=== PATIENT | female | born 1950 | race Caucasian/White ===

== ENCOUNTER 2016-12-11 01:54 | Inpatient (IN) | payer MEDICARE ==
[2016-12-11] VITALS (28 sets, daily range): BP systolic 69–185; BP diastolic 59–95; PULSE 44–72; RESP 12–18; O2SAT 96–100
[~2016-12-11] VITALS: Ht 160 cm; Wt 74.8 kg
[~2016-12-11 01:54] MED LIST: CHOL500011 PO; CITA20TA11 PO; COPAXIN; DIPH50C PO; ESTR0.5T4 PO; GLAT20KI2 SUBQ; LAMICTAL; LEVO50TA6 PO; LEVOTHYROXINE; METO25TA99 PO; OMEP-113 PO
[2016-12-11 02:16] LABS: BASOPHILS % (AUTO) 0.6 % (0-3); EOSINOPHILS % (AUTO) 3.1 % (0-5); MONOCYTES % (AUTO) 6.5 % (4-12); Mean Corpuscular Hemoglobin 28.6 pg (27.0-35.0); Mean Corpuscular Volume 85.6 fL (81-100); NEUTROPHILS % (AUTO) 60.8 % (40-74); Platelet Count 305 bil/L (150-400)
--- NOTE | 2016-12-11 02:22 | ED.REPORT ---
HPI-Chest Pain 40 and Over Date of Service Dec 11, 2016 ED Provider: James Pereira MD Patient is a 66 year old female with a history of NSTEMI secondary to stress cardiomyopathy, hypertension, multiple sclerosis, and bipolar disorder presents to the ED with chest tightness that began at 2030 yesterday. The patient later developed left arm pain and nausea, so she decided to present to the ED tonight for evaluation. Patient denies abdominal pain, swelling in her legs, or shortness of breath. Patient states that her current symptoms are similar to when she previously had her NSTEMI. The patient states that her prior episode was thought to be either a myocardial infarction or "broken heart syndrome". Previous cardiac catheterization in 2012 showed no obstructive coronary disease and was suggestive of stress cardiomyopathy as the underlying etiology of her elevated troponin. Nursing Notes Stated Complaint: LEFT ARM PAIN/CHEST TIGHTNESS/NAUSEA Chief Complaint: Chest Pain Nursing Notes Reviewed: Yes Allergies: Coded Allergies: oxycodone (Verified Allergy, Severe, Nausea,Vomiting, 08/08/13) Scheduled Cholecalciferol (Vitamin D3) (Vitamin D3) 5,000 Unit Tablet 5,000 UNIT PO DAILY Citalopram (Citalopram) 20 Mg Tablet 20 MG PO DAILY Estradiol (Estrace) 0.5 Mg Tablet 0.5 MG PO DAILY Glatiramer Acetate (Copaxone) 20 Mg Syringe 20 MG SUBQ 3XW Levothyroxine (Levothyroxine) 50 Mcg Tablet 50 MCG PO DAILY Metoprolol Succinate ER (Metoprolol Succinate ER) 25 Mg Tab.er.24h 12.5 MG PO DAILY Omeprazole Magnesium (Omeprazole) 20 Mg Capsule.dr 20 MG PO DAILY Scheduled PRN Diphenhydramine Hcl (Benadryl) 25 Mg Capsule 25 MG PO HS PRN PRN For Insomnia Miscellaneous Medications ([Copaxin]) NEED SIG ([Levothyroxine]) NEED SIG ([Lamictal]) NEED SIG General Time Seen by MD: 02:01 Chief Complaint Chest pain Hx Obtained From: Patient Arrived By: Walk-in Sudden in Onset?: No Onset Occurred: 5 - 8 hours ago Symptom Duration: Since onset Location: : Chest left: Chest right Quality: Painful Severity: Current: Moderate Severity: Maximum: Severe Recent Healthcare: No recent doctor visit, No recent hospitalization Similar Sx Previous: Yes Past Medical History Past Medical History Notes: previous cardiac catheterization in 2012 showed no obstructive coronary disease and was suggestive of stress cardiomyopathy Past Medical History 1. Multiple sclerosis diagnosed about five years ago. 2. bipolar disorder. 3. Hypothyroidism. 4. GERD. 5. NSTEMI due to stress cardiomyopathy. Previous cardiac catheterization showed no obstructive coronary disease and was suggestive of stress cardiomyopathy Reports: Hypertension Reports: Depression Past Surgical History rotator cuff sinus surgery Reports: Hysterectomy Smoking History Never Smoker Review of Systems Respiratory: Denies: Shortness of breath Cardiovascular: Reports: Chest pain GI: Reports: Nausea, Denies: Abdominal pain, Vomiting Musculoskeletal: Reports: Extremity pain, Denies: Extremity swelling Complete sys rev & neg: except as marked. Physical Exam Initial Vital Signs Vital Signs (First) Date Time Temp Pulse Resp B/P Pulse Ox O2 Delivery O2 Flow Rate FiO2 12/11/16 02:05 36.6 63 17 156/80 99 Room Air Initial VS: Reviewed, Vital signs normal Head / Eyes: Atraumatic, Normocephalic, PERRL ENT: Mucous membranes moist, Conjunctiva normal, No scleral icterus Extremities: Vascular intact, Neuro intact, No swelling (no edema), No tenderness Skin: Warm, Dry, No cyanosis Neurologic: Alert, Oriented, Nonfocal Psychiatric: Mood/affect normal, Behavior normal, Normal thought content General/Constitutional: Awake, Alert, No acute distress Respiratory / Chest: Breath sounds NL, Breath sounds = bilat, No respiratory distress, No rales, No rhonchi, No wheezing Cardiovascular: Heart rate NL, Regular rhythm, Heart sounds NL Abdomen: Soft, Non-tender Neck: Supple, No JVD Interpretation & Diagnostics Lab Results Interpretation Result Diagram: 12/11/16 0205 12/11/16 020 Test 12/11/16 02:05 White Blood Count 11.5th/mm3 (3.8-10.1) Red Blood Count 4.79mil/mm3 (3.90-5.20) Hemoglobin 13.7g/dL (12.0-15.6) Hematocrit 41.0% (35.0-46.0) Mean Corpuscular Volume 85.6fL (81-100) Mean Corpuscular Hemoglobin 28.6pg (27.0-35.0) Mean Corpuscular Hemoglobin Concent 33.4% (32.0-37.0) Red Cell Distribution Width 12.8% (12.3-15.4) Platelet Count 305bil/L (150-400) Neutrophils (%) (Auto) 60.8% (40-74) Lymphocytes (%) (Auto) 28.8% (14-46) Monocytes (%) (Auto) 6.5% (4-12) Eosinophils (%) (Auto) 3.1% (0-5) Basophils (%) (Auto) 0.6% (0-3) Activated Partial Thromboplast Time 25.8sec (22.8-33.0) Sodium Level 132mEq/L (134-144) Potassium Level 3.9mEq/L (3.5-5.2) Chloride Level 93mEq/L (97-108) Carbon Dioxide Level 24mmol/L (18-29) Blood Urea Nitrogen 9mg/dL (8-27) Creatinine 0.72mg/dL (0.57-1.00) Estimat Glomerular Filtration Rate 116mL/min (>59) Glucose Level 112mg/dL (60-99) Calcium Level 8.7mg/dL (8.5-10.1) Magnesium Level 1.8mg/dL (1.6-2.6) Total Bilirubin 0.2mg/dL (0.0-1.2) Aspartate Amino Transf (AST/SGOT) 26U/L (0-50) Alanine Aminotransferase (ALT/SGPT) 22U/L (0-32) Alkaline Phosphatase 48U/L (25-165) Troponin T 0.164ug/L (0.0-0.011) Total Protein 7.1g/dL (6.4-8.4) Albumin 4.2g/dL (3.4-5.0) Hold Kim Top Tube Received (Received) Lab Results Interpretation: Mildly elevated white blood count, elevated troponin at 0.164. ECG Interpretation ECG Interpretation: Sinus rhythm, Rate 57 Time: 02:09 Interpreted by: ED physician Normal ECG Interpretation: No acute ischemic changes Time: 03:05 Interpreted by: ED physician Normal ECG Interpretation: No acute ischemic changes Repeat ECG: Repeat ECG unchanged X-Ray Chest Interpretation Chest Xray Interpretation: Impression: No acute cardiopulmonary process. View: Portable Interpretation / Wet Read by: Wet read ED physician Re-Eval/Medical Decision Med Decision/Clinical Course 66-year-old female with history and apparent and nonSTEMI in 2012 but a normal left heart catheterization so it was felt that she had a stress cardiomyopathy. Today she presents with left arm and chest pain. Her troponin is elevated. EKG is normal. She will be admitted for further OBSERVATION and treatment. Source of Hx: Old records Time of Eval: 04:10 Patient Status: Condition improved Re-Evaluation/Progress Note: Patient was informed of the results of her chest x-ray, EKG, and labs. Due to her elevated troponin, she will need to be admitted to the hospital for further. Patient understands and agrees with this plan. All questions were addressed. Consultation : Referral / Consult Name: Sorin Gracia MD Consulted With: Hospitalist Call Returned at: 03:39 Separator Operator: Will see patient, Agrees with eval, Agrees with plan, Accepts admit Note: Spoke with Dr. Gracia, hospitalist, who agrees to accept admit. Counseled Regarding: Diagnosis, Lab results, Need for admission Discharge & Departure Primary Impression: Acute coronary syndrome Additional Impressions: Elevated troponin Chest pain Chest pain type: unspecified Qualified Code: R07.9 - Chest pain, unspecified Disposition: ADMITTED TO HOSPITAL Discharge Condition All VS Reviewed: Yes Condition: Stable Referrals: Myesha Mathew MD (PCP) Scribe Attestation Portions of this note were transcribed by Ana Koch. I, Dr. Pereira personally performed the history, physical exam and medical decision-making; I reviewed and confirmed the accuracy of the information in the transcribed note. Signed by: Daly Kowalski, 12/11/2016 1753 copies to: Myesha Mathew MD, Howard L MD Dec 11, 2016 02:22 Ana Koch Dec 11, 2016 02:51
[2016-12-11 02:55] LABS: Magnesium 1.8 mg/dL (1.6-2.6)
[2016-12-11 02:57] LABS: TROPONIN T 0.164 ug/L (0.0-0.011)
[2016-12-11] MEDS ORDERED: Nitroglycerin 2% 1 Gm Ointment TOPICAL ONE (03:25)
[2016-12-11] MEDS ORDERED: Heparin 25K Unit/500mL 0.45 NS 25,000 UNIT in IV Premix 1 EACH IV ONE (03:25)
[2016-12-11] MEDS ORDERED: MeTOProlol 1 mg/mL 5 mL Inj IVPUSH PRN (03:25)
[2016-12-11] MEDS ORDERED: Heparin 5,000 Unit/mL Inj IVPUSH ONE (03:25)
--- NOTE | 2016-12-11 05:37 | PCM.HPMED ---
Subjective Date of Service Dec 11, 2016 Primary Provider: Admitting Physician: Sorin Gracia MD Primary Care Physician: Rahul Attending Physician: Sorin Gracia MD Admit Status: From the Emergency Department Chief Complaint: Female with left-sided chest pain History of Present Illness: Patient is a pleasant 66 Y?O F with a history of NSTEMI secondary to stress cardiomyopathy, HTN, multiple sclerosis, and myalgia who presented to the ED with complaint of acute onset squeezing chest tightness/pressure that began at 2030 12/10/2016. The patient later developed achy left shoulder, arm pain that extended to the fingertips and brief nausea, mild diaphoresis and shortness of breath. Patient had blood pressure taken at home and her blood systolic blood pressure was 185 but later came down to 150. Patient states that the pain lasted for about an hour and eventually went away after taking 2 baby aspirin. However then patient states that she laid down to "sleep but could not sleep secondary to chest pain and this is what brought her to ED tonight. Patient denied abdominal pain, swelling in her legs, fever, chills, cough. Patient stated that her current symptoms are similar to when she previously had her NSTEMI. The patient stated that her prior episode was thought to be either a myocardial infarction or "broken heart syndrome". Previous cardiac catheterization in 2012 showed no obstructive coronary disease and was suggestive of stress cardiomyopathy as the underlying etiology of her elevated troponin. In the ED vital signs: Temperature 36.3, pulse 63, blood pressure 156/80, respirations 1799% on room air. Hemogram: Hemoglobin 13.7, hematocrit 41.0, WBCs elevated at 11.5, platelets 305. Chemistry panel sodium 132, potassium 3.9, chloride 93, CO2 24, BUN 9, creatinine 0.72, glucose 112, troponin 0.164 EKG: Sinus rhythm, Rate 57. No acute ischemic changes Repeat EKG:No acute ischemic changes CXR: acute cardiopulmonary process. Patient was admitted to hospital for an STEMI and further workup. Review of Systems: A comprehensive review of systems was conducted and was negative except as mentioned in the history of present illness. Allergies Coded Allergies: No Known Allergies (Unverified , 12/11/16) verified with pt. Pt has been able to take oxycodone in recent without reaction. Home Medications Scheduled Cholecalciferol (Vitamin D3) (Vitamin D3) 5,000 Unit Tablet 5,000 UNIT PO DAILY Estradiol (Estrace) 0.5 Mg Tablet 0.5 MG PO DAILY Glatiramer Acetate (Copaxone) 20 Mg Syringe 20 MG SUBQ 3XW Levothyroxine (Levothyroxine) 50 Mcg Tablet 50 MCG PO DAILY Metoprolol Succinate ER (Metoprolol Succinate ER) 25 Mg Tab.er.24h 12.5 MG PO DAILY Omeprazole Magnesium (Omeprazole) 20 Mg Capsule.dr 20 MG PO DAILY PMH Past Medical History Notes: previous cardiac catheterization in 2012 showed no obstructive coronary disease and was suggestive of stress cardiomyopathy 1. Multiple sclerosis diagnosed about five years ago. 2. Fibromyalgia 3. Hypothyroidism. 4. GERD. 5. NSTEMI due to stress cardiomyopathy. Previous cardiac catheterization showed no obstructive coronary disease and was suggestive of stress cardiomyopathy Reports: Hypertension Reports: Depression Surgical History rotator cuff bilateral repair 1995 in 2001 sinus surgery Reports: Hysterectomy in 1993 Social History Hx Alcohol Use: Yes (COUPLE DRINKS TWICE A WEEK) Hx Substance Use: No Hx Tobacco Use: No Smoking Status: Never Smoker Living Arrangement: with Family Exam Vital Signs Vital Sign - Last Date Time Temp Pulse Resp B/P Pulse Ox O2 Delivery O2 Flow Rate FiO2 12/11/16 03:44 56 147/69 12/11/16 03:20 12 98 Room Air 12/11/16 02:05 36.6 Exam General: Patient was alert and oriented 3, resting comfortably in bed appeared in no acute distress speaking in full sentences, and not slurring her words HEENT: NC/AT, eyes PERRLA EOMI, neck soft nontender supple no nuchal signs, no adenopathy no JVD no masses, throat noninjected no erythema no exudates Lungs: Clear all ramirez bilaterally Heart: Regular rate and rhythm no murmur S1-S2 present Abdomen: Soft nontender, bowel sounds active, no masses, no distention, no rebound no guarding Extremities: Capillary refill less than 2 seconds, pulses symmetric bilaterally and 2 out of 4 upper/lower extremity Neurologic: Cranial nerves II-12 intact grossly, patient is alert, speaking full sentences, no focal signs Skin: Warm dry and intact Psychiatric: Mood and affect are congruent, patient is pleasant Lab and Diagnostics Result Diagram: 12/11/1620412/11/16204 Assessment & Plan Patient is a pleasant 66 Y?O F with a history of NSTEMI secondary to stress cardiomyopathy, HTN, multiple sclerosis, and bipolar disorder who presented to the ED with complaint of acute onset chest tightness that began at 2029. Patient was admitted to hospital for an STEMI and further workup. # Acute Coronary Syndrome/NSTEMI, Present on Admission, active -History of previous cardiac catheterization in 2012 showed no obstructive coronary disease and was suggestive of stress cardiomyopathy. -History of prior and STEMI with symptoms similar to what she is having on this presentation. -Patient has prior history of stress-induced myopathy with an STEMI -EKG: Sinus rhythm, Rate 57. No acute ischemic changes, Repeat EKG:No acute ischemic changes. -Troponin 0.164 ED -CXR no acute cardiopulmonary changes -Troponin I X 2, -Cardiology consult in the morning -O2 Sats keep > 94% -IV fluids normal saline 100 liters per hour -Continue home Metoprolol 12.5 daily -Atorvastatin 40 mg -Morphine for pain control -We will hold off on Nitro SL, Nitro [place], Nitro Paste as patient has severe headaches -Aspirin 325mg + Plavix 300mg Loading with 75mg daily to follow -Heparin IV drip (Protamine for reversal if needed) -Continuous Cardiac Monitoring/BP monitoring -Labs (Lipid Panel, CBC, CMP, PT/PTT/INR) -NPO Other chronic problems # Multiple sclerosis, presumed stable # Fibromyalgia, presumed stable # Hypothyroidism, -TSH - Medication levothyroxine 50 g tablet daily # GERD -Continue medication of omeprazole # Hypertension - On metoprolol succinate ER 12.5 mg daily # Depression, presumed stable Other home medications estradiol will continue Disposition: Admitted to in patient service with expected length of stay greater than 2 days, secondary to severity of presenting symptoms, treatment plan, complexity of clinical work up, and risk of adverse events. CODE STATUS: Full PCP: Dr. Mathew DVT prophylaxis: Heparin drip for an STEMI Pain Evaluation: Adequate Pain Control Resuscitation Status: CPR: Attempt Resuscitation Attending Statement The patient was seen and examined together with Dr. Maldonado on 12/11 and I agree with the history, exam and plan as outlined in the note above. Philip Maldonado DO Dec 11, 2016 04:49 Sorin Gracia MD Dec 11, 2016 19:11
[2016-12-11] MEDS ORDERED: Atropine 1 mg/10 mL (Code) Syringe IVPUSH PRN (05:40)
[2016-12-11] MEDS ORDERED: Heparin 5,000 Unit/mL Inj IVPUSH PRN (05:40)
[2016-12-11] MEDS ORDERED: Heparin 25K Unit/500mL 0.45 NS 25,000 UNIT in IV Premix 1 EACH IV SCH (05:40)
[2016-12-11] MEDS ORDERED: Ondansetron 2 mg/mL 2 mL Inj IVPUSH PRN ×2 (05:40→18:30)
[2016-12-11] MEDS ORDERED: Polyethylene Glycol (PEG) 17 Gm Powder PO PRN (05:40)
[2016-12-11] MEDS ORDERED: Alum-Mag Hydrox-Simeth 30 mL Suspension PO PRN (05:40)
[2016-12-11] MEDS ORDERED: Senna-Docusate 8.6-50 mg Tablet PO PRN (05:40)
[2016-12-11] MEDS: 0.9% Sodium Chloride 1,000 ML IV SCH ×2 (06:29→18:44)
--- NOTE | 2016-12-11 06:47 | NUR ---
Admission: Pt received to room 203 at 0538 in stable condition from the ED. Pt denies any chest pain or discomfort radiating to the left arm. Pt denies any SOB or nausea. Telemetry placed; SB to SR 50s-60s noted on the monitor. Initial assessment completed with admission. Heparin gtt infusing at 1000 units/hour. NS started as ordered. Awaiting ordered medications to arrive from pharmacy. Will cont. to monitor and update oncoming staff. Pt instructed on NPO status.
[2016-12-11] MEDS: Sodium Chloride LOK Flush 10 mL Syringe IVFLUSH SCH ×2 (07:56→16:30)
[2016-12-11] MEDS: Pantoprazole 20 mg ER24 Tablet PO SCH (08:08)
[2016-12-11] MEDS: MeTOProlol XL 25 mg ER24 Tablet PO SCH (08:25)
--- NOTE | 2016-12-11 09:43 | DRSVH ---
PROCEDURE: X-RAY CHEST ONE VIEW, PORTABLE ([id number]) INDICATIONS: CHEST PAIN TECHNIQUE: One view of the chest was acquired. COMPARISON: [facility], , CHEST 1VW (PORTABLE), 11/05/2013, 12:56. FINDINGS: Surgical changes and devices: None. Lungs and pleura: No pleural effusions or pneumothorax. Lungs are clear. Mediastinum: Mediastinal contours appear normal. Heart size is normal. Bones and chest wall: No suspicious bony lesions. Overlying soft tissues appear unremarkable. IMPRESSION: No acute cardiopulmonary disease. Dictated by: Brice Monk [facility] Interpreted: Pattie Swan MD on 12/11/2016 at 9:42 Transcribed by: RYLEE on 12/11/2016 at 9:42 Approved by: Pattie Swan MD, PhD on 12/11/2016 at 17:06
[2016-12-11] MEDS ORDERED: Alum-Mag Hydrox-Simeth 30 mL Suspension PO ONE ×2 (10:05→10:26)
--- NOTE | 2016-12-11 10:46 | PCM.PNMED ---
Subjective Date of Service Dec 11, 2016 Subjective Ms. Carcamo is a pleasant 66 year old woman with a history of non-ST elevation myocardial infarction secondary to stress cardiomyopathy in 2012, hypertension, multiple sclerosis, and myalgia who presented to the emergency department with complaint of acute onset squeezing chest tightness/pressure that began at 2030 on 12/10/2016. Today is hospital day 1. This morning patient reports 10/10 chest pressure that she describes as intermittent sharp pain in her left breast that now radiates into her left arm and shoulder. It is also pressure. She has associated diaphoresis and "belching. " She was nauseous and felt palpitations last night but it has resolved. She denies swelling in her legs. She had a similar episode in 2012 when she had a heart catheterization and told she had a mild heart attack after her mother . She recently has been under additional stress with starting to take care of her father who is in his 90s. Her 10/10 chest pain was reduced to 4/10 after morphine, sublingual nitroglycerin, and Maalox. Upon recheck, her pain was reduced to 2/10. Exam Vital Signs Vital Sign - Last Date Time Temp Pulse Resp B/P Pulse Ox O2 Delivery O2 Flow Rate FiO2 12/11/16 10:30 44 155/71 12/11/16 07:58 36.5 16 99 Room Air Intake and Output 12/10/16 12/10/16 12/11/16 Cumulative From/Thru 15:00 23:00 07:00 12/11/16 02:05 - 12/11/16 06:02 Output Total 900 ml 900 ml Balance -900 ml -900 ml Output Urine Total 900 ml 900 ml Exam General: Patient was alert and oriented 3, moderate acute distress secondary to active chest pain, and not slurring her words HEENT: NC/AT, eyes PERRLA EOMI, neck soft nontender supple no nuchal signs, no adenopathy no JVD no masses, throat noninjected no erythema no exudates Lungs: Clear all ramirez bilaterally Heart: Bradycardiac. Regular rhythm no murmur S1-S2 present Abdomen: Soft nontender, bowel sounds active, no masses, no distention, no rebound no guarding Extremities: Capillary refill less than 2 seconds, pulses symmetric bilaterally and 2 out of 4 upper/lower extremity Neurologic: Cranial nerves II-12 intact grossly, patient is alert, speaking full sentences, no focal signs Skin: Warm dry and intact Psychiatric: Mood and affect are congruent, patient is pleasant IVs and Medications Medications Reviewed: Medications were reviewed in detail Lab and Diagnostics Result Diagram: 12/11/1620412/11/16204 Assessment & Plan Ms. Carcamo is a pleasant 66 year old woman with a history of non-ST elevation myocardial infarction secondary to stress cardiomyopathy in 2013, hypertension, multiple sclerosis, and myalgia who presented to the emergency department with complaint of acute onset squeezing chest tightness/pressure. Today is hospital day 1. 1. Acute Coronary Syndrome/non-ST elevation myocardial infarction, Present on Admission. Active. -History of previous cardiac catheterization in 2012 showed no obstructive coronary disease and was suggestive of stress cardiomyopathy. -History of prior non-ST elevation myocardial infarction with symptoms similar to what she is having on this presentation. -EKG: Sinus rhythm, Rate 57. No acute ischemic changes, Repeat EKG:No acute ischemic changes. Additional repeat EKG during active chest pain: Sinus bradycardia (45) with no significant ST segment changes. -Troponin initially 0.164 in the emergency department and repeat troponin 0.105 -Chest x-ray no acute cardiopulmonary changes -Gave clopidogrel 300mg loading dose. -Continue to repeat Troponin I every 8 hours -Place patient on oxygen and keep oxygen saturation > 94% -Continue IV fluids normal saline 100 liters per hour -Continue morphine 1-5 mg IV push every 5 minutes as needed for pain control -Started nitroglycerin sublingual 0.4 mg every 5 minutes as needed for pain control. -Held patient's home metoprolol 12.5 mg by mouth this morning due to patient's sinus bradycardia. -Cardiology consulted and following patient. Time and recommendations are appreciated. -Patient had a left cardiac catheterization with coronary angiogram today that showed nonobstructive coronary artery disease and wall motion abnormalities seen on echo are suspected to be likely stress related. -Stop heparin IV drip and monitor PTT tomorrow. -Will change aspirin 325mg once daily to aspirin 81 mg daily for lifetime as an outpatient. - Stop daily clopidogrel 75mg. -Start atorvastatin 40 mg by mouth daily at bedtime. Will reassess need after lipid panel and based on results of cardiac testing done during patient's admission. -Will switch to atorvastatin 10 mg 1 tablet by mouth once daily for lifetime as an outpatient. -Patient given PO Tylenol 650 mg once for patient's headache after nitroglycerin. -Monitor labs tomorrow Other chronic problems 2. Multiple sclerosis, presumed stable -Continue home medication 3. Fibromyalgia, presumed stable 4. Hypothyroidism, -TSH normal limits - Continue medication levothyroxine 50 g tablet daily 5. GERD -Continue medication of omeprazole 6. Hypertension - On metoprolol succinate ER 12.5 mg daily, which was held this morning due to sinus bradycardia 7. Depression, presumed stable Other home medications estradiol will continue Disposition: Admitted to in patient service with expected length of stay greater than 2 days, secondary to severity of presenting symptoms, treatment plan, complexity of clinical work up, and risk of adverse events. Patient will likely be discharged home tomorrow pending that she no longer has chest pain. She will be discharged home on an daily 81 mg aspirin and 10 mg atorvastatin. CODE STATUS: Full PCP: Dr. Mathew DVT prophylaxis: Heparin drip, which is now discontinued. Will consider initiating a new DVT prophylaxis if patient stays beyond tomorrow. Resuscitation Status: CPR: Attempt Resuscitation Attending Statement The patient was seen and examined together with Dr. Quinones on 12/11/2016 and I agree with the history, exam and plan as outlined in the note above. . Katty Quinones DO Dec 11, 2016 10:46 Andrea Madden MD Dec 13, 2016 17:13
[2016-12-11] MEDS ORDERED: CHOL200025 PO (12:05)
[2016-12-11] MEDS ORDERED: METH750T3 PO (12:07)
[2016-12-11] MEDS ORDERED: ESTR1TAB28 PO (12:08)
--- NOTE | 2016-12-11 14:55 | DRSVH ---
[facility] [address] [place] [address] Echocardiogram Report Name: MEAR HUIZAR LStudy Date: 12/11/2016 Height: 63 in Hospital Exam Location: [facility] Weight: 168 lb Gender: Female BSA: 1.8 m2 : 1950 Age: 66 yrs BP: 155/71 mmHg Reason For Study: NSTEMI Ordering Physician: Performed By: Lazaro Hickman Interpretation Summary 1) Normal left ventricular thickness and size with low normal systolic function (EF 50-55%). 2) Hypokinesis of the anteroseptum, mid to distal inferoseptum, and distal inferior wall. 3) Normal right ventricular size and function. 4) No significant valvular abnormalities. 5) Compared to the Echo done 11/05/2013, wall motion abnormalties above are new. Procedure: A two-dimensional transthoracic echocardiogram with color flow and Doppler was performed. The study quality was technically good. Comparison is made with the echocardiogram of 11/05/13. The patient was in normal sinus rhythm during the exam. Left Ventricle: The left ventricle is normal in size. There is normal left ventricular wall thickness. The ejection fraction is estimated to be 50-55%. Hypokinesis of the anteroseptum, mid to distal inferoseptum, and distal inferior wall. Right Ventricle: The right ventricle is normal in size and function. Atria: Both atria are normal in size. The interatrial septum is intact with no evidence for an atrial septal defect. Mitral Valve: The mitral valve is normal in structure and function. There is mild mitral regurgitation. Aortic Valve: The aortic valve is normal in structure and function. The aortic valve is trileaflet. The aortic valve opens well. There is no aortic valve stenosis. No aortic regurgitation is present. Tricuspid Valve: The tricuspid valve is normal in structure and function. There is trace tricuspid regurgitation. The right ventricular systolic pressure is estimated at 22 mmHg assuming a right atrial pressure of 3 mm Hg. Pulmonic Valve: The pulmonic valve is normal in structure and function. There is trace pulmonic regurgitation. Great Vessels: The aortic root is normal size. The dimensions of the ascending aorta are normal. The pulmonary artery is normal size. The IVC is of normal diameter and collapses greater than 50% with a sniff. This suggests a low right atrial pressure of 3 mm Hg. Pericardium/ Pleura There is no pericardial effusion. There is no pleural effusion. MMode/2D Measurements & Calculations LVIDd: 3.9 cmLA dimension: 4.1 cm RA long axis: 4.6 cm Ao root diam LVIDs: 2.3 cm FS: 39.5 % LA A2 area: 20.6 cm RA area: 11.9 cm Aortic Jxn: 2.4 cm EPSS: 0.46 cmLA A4 area: 19.5 cm RA vol: 25.9 ml asc Aorta Diam IVSd: 0.93 cmLA length (vol) RA : 14.4 ml/m2 LVPWd: 2.5 cm Ao Arch Diam (Prox LA vol: 60.9 ml Trans): 2.8 cm LA vol index IVC diam: 1.5 cm EDV(MOD-sp2) LV boogie. diameter/BSA LV sys. diameter/BSA RVD1 (basal) (cm/m^2): 2.1 (cm/m^2): 1.3 : 2.5 cm RVD2 (mid) : 2.9 cm Doppler Measurements & Calculations Ao V2 max MV E max jonas MV E/A: 0.88 TR max jonas: 218.4 cm/sec : 109.3 cm/sec : 85.2 cm/sec Med Peak E' Jonas TR max P.1 mmHg Ao max PG MV A max jonas PA V2 max: 84.1 cm/sec : 4.8 mmHg : 96.9 cm/sec E/E' med: 13.3 PA mean P.6 mmHg Ao mean PG Lat Peak E' Jonas PA Accel Time: 0.11 sec : 2.6 mmHg E/E' lat: 10.6 E/e' average Pulm A Revs Dur MV A dur: 0.11 sec MV dec time Ao V2 mean PA V2 mean Pulm A Revs Dur - MV A : 0.23 sec : 76.5 cm/sec : 60.5 cm/sec Dur: -0.01 msec Ao V2 VTI PA pr(Accel) : 28.8 cm : 29.1 mmHg Reading Physician:02:54 PM
[2016-12-11] MEDS ORDERED: Heparin 5,000 Unit/mL Inj ONE (15:05)
[2016-12-11] MEDS ORDERED: 0.9% Sodium Chloride 2,000 ML ONE (15:05)
[2016-12-11] MEDS ORDERED: Nitroglycerin 50,000 mcg/250 mL D5W Premix IV ONE (15:05)
[2016-12-11] MEDS ORDERED: Heparin 1,000 Unit/mL 10 mL Inj ONE (15:05)
[2016-12-11] MEDS ORDERED: fentaNYL-PF 50 mCg/mL 2 mL Inj ONE (15:21)
[2016-12-11] MEDS ORDERED: Heparin 25,000 Unit/500 mL 0.45% NS Premix IV ONE (15:37)
[2016-12-11] MEDS ORDERED: Heparin 5,000 Units/500 mL NS Premix IV ONE (15:37)
[2016-12-11] MEDS ORDERED: Heparin 1,000 Units/500 mL NS Premix IV ONE (15:38)
--- NOTE | 2016-12-11 15:38 | PCM.CHPCAR ---
Consult Subjective Date of service Dec 11, 2016 Date of admit Dec 11, 2016 at 04:15 Provider Requesting Consult Primary Care Physician Primary Care Provider: Pebblescp Chief Complaint NSTEMI History of Present Illness Ms. 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 At time of admission Pt stated that she developed a chest tightness starting yesterday at approximately 2030. This morning Pt states that her chest pain was a 10/10 described as an intermittent sharp pain in her left breast and now radiating into her left arm and left shoulder. She also endorsed nausea without vomiting and diaphoresis. She states these symptoms are similar to those felt during her last heart attack in 2012 where she had a catheterization done which showed no obstructive CAD and was told that she had a "mild heart attack" or was suffering from "broken heart syndrome" (stress induced cardiomyopathy). Review of Systems Review of Systems Subjective: At time of interview patient laying in bed currently undergoing active chest pain. Patient states her pain is located in her midsternal area radiating to left shoulder and down left arm, denies radiation to neck or jaw. Patient states the pain is currently a 10 out of 10 and is similar to previous episodes earlier this morning. She did find relief with nitroglycerin and morphine administration. She denies headache or visual changes. Denies shortness of breath. 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 Endorses diaphoresis Eyes: Denies Blurred Vision, Vision Changes Neck: Denies Mass, Pain, Swelling Cardiovascular: Denies Edema, Irregular Heart Rate, Palpitations. Endorses midsternal chest pain currently 3/10, radiating to left shoulder and down left arm Respiratory: Denies Cough, Cough with bloody sputum, SOB with Exertion, Shortness of Breath, Sputum, Wake up Gasping for Breath, Wheezing Gastrointestinal: Denies Abdominal Pain, Constipation, Diarrhea, Heartburn, Vomiting. Endorses nausea Genitourinary: Denies No burning or pain with urination Neurological: Denies Change in LOC, Change in Speech, Confusion, Difficulty Walking, Dizziness, Double Vision, Localized Weakness, Numbness, Seizures, Tremors, Vertigo Lymphatic: Denies Adenopathy PMH Past Medical History 1. Multiple sclerosis diagnosed about five years ago. 2. Fibromyalgia 3. Hypothyroidism. 4. GERD. 5. NSTEMI due to stress cardiomyopathy. Previous cardiac catheterization showed no obstructive coronary disease and was suggestive of stress cardiomyopathy Reports: Hypertension Reports: Depression Past Surgical History rotator cuff bilateral repair 1995 in 2001 sinus surgery Reports: Hysterectomy in 1993 Catheterization in 2012 showed no evidence of CAD Bedside Blood Glucose: 111 Scheduled Cholecalciferol (Vitamin D3) (Vitamin D3) 2,000 Unit Tablet 2,000 UNIT PO DAILY (Reported) Estradiol (Estrace) 1 Mg Tablet 1 MG PO DAILY (Reported) Glatiramer Acetate (Copaxone) 20 Mg Syringe 20 MG SUBQ 3XW (Reported) Levothyroxine (Levothyroxine) 50 Mcg Tablet 50 MCG PO DAILY (Reported) Metoprolol Succinate ER (Metoprolol Succinate ER) 25 Mg Tab.er.24h 12.5 MG PO DAILY (Reported) Omeprazole Magnesium (Omeprazole) 20 Mg Capsule.dr 20 MG PO DAILY (Reported) Scheduled PRN Methocarbamol (Methocarbamol) 750 Mg Tablet 750 MG PO TID PRN PRN For Spasm ( Reported) Discontinued Medications ([Copaxin]) NEED SIG (Reported) ([Levothyroxine]) NEED SIG (Reported) ([Lamictal]) NEED SIG (Reported) Cholecalciferol (Vitamin D3) (Vitamin D3) 5,000 Unit Tablet 5,000 UNIT PO DAILY (Reported) Citalopram (Citalopram) 20 Mg Tablet 20 MG PO DAILY (Reported) Diphenhydramine Hcl (Benadryl) 25 Mg Capsule 25 MG PO HS PRN PRN For Insomnia ( Reported) Estradiol (Estrace) 0.5 Mg Tablet 0.5 MG PO DAILY (Reported) Current Inpatient Medications Current Medications Metoprolol Tartrate 5 mg Q5MIN PRN IVPUSH; Start 12/11/16 at 03:25 Sodium Chloride 10 ml 10 ml NIKOLE IVFLUSH; Start 12/11/16 at 08:30 Sodium Chloride 1,000 ml @ 80 mls/hr [id number] IV Last administered on 12/11/16 06:29; Admin Dose 80 MLS/HR; Start 12/11/16 at 05:37 Aspirin 325 mg DAILY PO Last administered on 12/11/16 08:28; Admin Dose 325 MG; Start 12/11/16 at 05:40 Clopidogrel Bisulfate 75 mg DAILY PO; Start 12/12/16 at 08:30 Al Hydrox/Mg Hydrox/Simethicone 30 ml Q6 PRN PO; Start 12/11/16 at 05:40 Ondansetron HCl 4-8 mg prn nausea Q4 PRN IVPUSH; Start 12/11/16 at 05:40 Senna 1 tablet BID PRN PO; Start 12/11/16 at 05:40 Polyethylene Glycol 17 gm DAILY PRN PO; Start 12/11/16 at 05:40 Acetaminophen 325 mg Q6 PRN PO; Start 12/11/16 at 05:40 Morphine Sulfate 1-5 mg prn pain not relie... Q5M PRN IVPUSH Last administered on 12/11/16 14:46; Admin Dose 2 MG; Start 12/11/16 at 05:40 Atropine Sulfate For bradycardia Q5MIN PRN IVPUSH; Start 12/11/16 at 05:40 Heparin Sodium (Porcine) Per Protocol for a... PRN PRN IVPUSH; Start 12/11/16 at 05:40 Levothyroxine Sodium 50 mcg DAILY PO Last administered on 12/11/16 08:08; Admin Dose 50 MCG; Start 12/11/16 at 08:30 Metoprolol Succinate 12.5 mg DAILY PO; Start 12/11/16 at 08:30 Cholecalciferol 5,000 unit DAILY PO; Start 12/11/16 at 08:30 Estradiol 0.5 mg DAILY PO Last administered on 12/11/16 08:06; Admin Dose 0.5 MG ; Start 12/11/16 at 08:30 Pantoprazole 20 mg 0630 PO Last administered on 12/11/16 08:08; Admin Dose 20 MG ; Start 12/11/16 at 06:30 Nitroglycerin 0.4 mg Q5MIN PRN SL Last administered on 12/11/16 14:40; Admin Dose 0.4 MG; Start 12/11/16 at 10:05 Atorvastatin Calcium 40 mg HS PO; Start 12/11/16 at 21:00 Allergies: Coded Allergies: No Known Allergies (Unverified , 12/11/16) verified with pt. Pt has been able to take oxycodone in recent without reaction. Family History Family History Father of old age at age 92 Social History Hx Alcohol Use: YesAlcoholic Drinks Per Day: couple drinks/weekHx Substance Use: NoHx Tobacco Use: No Smoking Status: Never Smoker Living Arrangement: with Family Exam Vital Signs Vital Sign - Last Date Time Temp Pulse Resp B/P Pulse Ox O2 Delivery O2 Flow Rate FiO2 12/11/16 14:44 47 143/79 12/11/16 12:27 36.5 16 98 Nasal Cannula 1.00 Intake and Output 12/10/16 12/10/16 12/11/16 Cumulative From/Thru 15:00 23:00 07:00 12/11/16 02:05 - 12/11/16 06:02 Output Total 900 ml 900 ml Balance -900 ml -900 ml Output Urine Total 900 ml 900 ml Objective General: Laying in hospital bed in moderate distress, well-developed, well- nourished, appropriately interactive HEENT: Normocephalic, atraumatic. External ears without defect. Pupils equal, round, and reactive to light and accommodation. Neck: Supple with full range of motion. No jugular venous distension. No bruits. Cardiovascular: Bradycardic rate with regular rhythm, no murmurs, rubs, or gallops appreciated. Mild pain to palpation midsternal and left axillary region. Pulmonary: Clear to auscultation bilaterally with no crackles, wheezes, or rhonchi. Normal respiratory effort with no use of accessory muscles. Abdomen: Bowel tones present. Soft, nontender, nondistended. Extremities: No clubbing, cyanosis, edema, or lymphadenopathy appreciated. Skin: Normal temperature, turgor, and texture; no rash, ulcers, or subcutaneous nodules appreciated. Slightly diaphoretic Neurological: Cranial nerves grossly intact. Normal muscle strength, tone, and bulk. No known gait impairment. Psychiatric: Normal mood and affect. Alert and oriented to person, place, and time. Lab and Diagnostics Result Diagram: 12/11/1620412/11/16204 X-Rays, CTs and MRIs . X-RAY CHEST ONE VIEW, PORTABLE IMPRESSION: No acute cardiopulmonary disease. Dictated by: Brice DOAN Interpreted: Pattie Swan MD 12-lead ECG Sinus bradycardia, ST elevation changes. Additional Diagnostics: Echocardiogram Report Interpretation Summary: 1) Normal left ventricular thickness and size with low normal systolic function (EF 50-55%). 2) Hypokinesis of the anteroseptum, mid to distal inferoseptum, and distal inferior wall. 3) Normal right ventricular size and function. 4) No significant valvular abnormalities. 5) Compared to the Echo done 11/05/2013, wall motion abnormalties above are new. Assessment & Plan Assessment Assessment and Plan: 66 year old female with PMH of stress induced cardiomyopathy and NSTEMI, admitted for NSTEMI with ongoing active chest pain. Hospital day 1. # Acute Coronary Syndrome/non-ST elevation myocardial infarction, Present on Admission. ECG unremarkable but troponin elevated along with intermittent chest pain that improves with nitro SL and morphine. Echo shows new regional wall motion abnormalities that could be ischemic or stress related. Of note, patient did have classic takotsubo cardiomyopathy in 2013 that resolved. Educated the patient about her condition and recommeded coronary angiography. Plan: -History of previous cardiac catheterization in 2013 showed no obstructive coronary disease and was suggestive of stress cardiomyopathy. -History of prior non-ST elevation myocardial infarction with symptoms similar to what she is having on this presentation. -EKG: Sinus rhythm, Rate 57. No acute ischemic changes, Repeat EKG:No acute ischemic changes. Additional repeat EKG: Sinus bradycardia with no significant ST segment changes. -Troponin initially 0.164 in the emergency department and repeat troponin 0.105 -Chest x-ray no acute cardiopulmonary changes - ECHO today showed EF of 50-55%, hypokinesis of anteroseptal, mid to distal inferoseptal, and distal inferior wall - these findings are new compared to prior ECHO. - Patient will receive diagnostic catheterization today -Continue to repeat Troponin I every 8 hours - Held home Metoprolol XR 12.5 daily secondary to bradycardia - Heparin IV drip - ASA and Plavix loading dose given - Statin 40 mg daily - Nitroglycerin PRN - Morphine PRN # Hypertension, present on admission. Ongoing - Hold metoprolol as above Cardiology Plan: Catherization Pain Evaluation: Adequate Pain Control Resuscitation Status: CPR: Attempt Resuscitation Attending Statement I saw, examined, and evaluated the patient with Dr. Josh Sanders on 12/11/2016 and agree with the note as above along with my edits. Patient underwent cath that showed non-obstructive coronary artery disease. Would recommend primary prevention of coronary artery disease (aspirin 81mg daily, atorvastatin 10mg daily). No need for heparin gtt and plavix from cardiac standpoint. JOSH SANDERS DO Dec 11, 2016 15:07 Home Fortune MD Dec 11, 2016 16:28
[2016-12-11] MEDS ORDERED: Atropine 1 mg/10 mL (Code) Syringe ONE (15:50)
--- NOTE | 2016-12-11 16:33 | PCM.CVCATH ---
Cardiac Cath Report Date of Service Dec 11, 2016 Primary Indication NSTEMI, history of takotsubo Procedure coronary angiography, left heart cath Vascular Access Right radial artery using 6 Fr slender sheath, closure with TR band. Diagnostic Catheters Left main: Troy 4.0, 5 Fr RCA: Troy 4.0, 5 Fr Procedure Details Coronary angiography details: The patient was brought to the cardiac catheterization lab in the fasting state. Patient was laid supine on the cardiac catheterization table and the right forearm was prepped and draped in the usual sterile fashion. One percent Xylocaine was infiltrated over the right radial artery. Vascular access was then achieved under ultrasound guidance. Guide wire was used to advance the catheter through the sheath and up into aortic sinuses. After coronary angiography was completed, guide wire was advanced through the catheter ahead of the tip of the catheter and the guide wire along with the catheter were pulled together out of the sheath. Medications/Fluoro Time Medications administered: 1.Fentanyl: 100 mcg IV 2. Midazolam: 2 mg IV 3. Heparin: 5000 units IV 4. Nitroglycerin: 200 mcg IA Fluoroscopy Time: 2.9 minutes, 455 mGy Fluids administered: 200 mls Contrast (Isovue): 50 mls Blood loss: 5 mls Findings 1) Coronary angiography: Right dominance a. Left main is angiographically normal b. LAD is normal caliber with mild luminal irregularities diffusely and 20% stenosis in the mid vessel. Diagonal arteries have minimal luminal irregularities. c. LCx is angiographically normal d. RCA is normal caliber with 10-20% stenosis in the mid vessel. 2) Left Heart catheterization: a. LVEDP is normal at 15 mmHg. b. No significant transaortic gradient on catheter pull-back. Complications There were no periprocedural complications identified. Summary Non-obstructive coronary artery disease. Suspect the wall motion abnormalities on echo are stress related. Recommendations Continue with primary prevention of coronary artery disease (aspirin 81mg daily and atorvastatin 10mg daily) Home Fortune MD Dec 11, 2016 16:33
[2016-12-11] MEDS ORDERED: 0.9% Sodium Chloride 250 ML IV PRN (18:26)
[2016-12-11] MEDS ORDERED: 0.9% Sodium Chloride 1,000 ML IV PRN (18:26)
--- NOTE | 2016-12-11 18:36 | NUR ---
TR band removed, no bleeding/hematoma noted. Pt's VSS, report and pt handoff given to Pop WHARTON.
--- NOTE | 2016-12-11 19:50 | NUR ---
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 Pt c/o mild left arm pain, MD ordered EKG, EKG obtained, Pt then reporting 10/10 chest pain later in the am, Pt diaphoretic and nauseous at this time, MD notified and instructed to give IV morphine, 2mg IV morphine given and another EKG ordered, nitro SL given X3 which Pt reported to help slightly, Pt then given GI cocktail which again helped slightly per Pt, Pt given additional 2mg dose of IV morphine and pain resolved. 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 Pt's right wrist site stable at shift change and was assessed with oncoming NOC RN.
[2016-12-11] MEDS ORDERED: COPAXONE 40 MG SUBQ ONE (21:00)
[2016-12-12] VITALS (10 sets, daily range): BP systolic 107–189; BP diastolic 57–98; PULSE 58–78; RESP 12–18; O2SAT 93–98
[2016-12-12] MEDS: Sodium Chloride LOK Flush 10 mL Syringe IVFLUSH SCH ×2 (00:54→08:01)
--- NOTE | 2016-12-12 03:12 | NUR ---
PT remains stable through the night. She denies any CP or SOB. V/S have been WNL. Pt in NSR. Lungs are CTA. UP to BR independently. R wrist cath site c/d/i with tiny amount of old sero-sang drainage noted. BG at HS was 99. Will CTM.
[2016-12-12 03:40] LABS: BASOPHILS % (AUTO) 0.6 % (0-3); EOSINOPHILS % (AUTO) 4.2 % (0-5); MONOCYTES % (AUTO) 10.7 % (4-12); Mean Corpuscular Hemoglobin 28.5 pg (27.0-35.0); Mean Corpuscular Volume 86.9 fL (81-100); NEUTROPHILS % (AUTO) 58.9 % (40-74); Platelet Count 257 bil/L (150-400)
[2016-12-12 04:45] LABS: TROPONIN T 0.199 ug/L (0.0-0.011)
[2016-12-12] MEDS: Pantoprazole 20 mg ER24 Tablet PO SCH ×2 (05:40→07:54)
--- NOTE | 2016-12-12 05:54 | NUR ---
Cardiac Called into pt room where pt was reporting pain to her L shoulder and arm at a 7/10. She also reported CP at 1/10. She was quite anxious. Pt was belching multiple times and said "maybe it is gas." B/P elevated into 180's over 90's. HR was dinah 50-60. PT was given morphine 2mg with minimal results. Maalox and zofran given as well. Nitro administered. PT very restless, rocking and moaning. WIll CTM.
[2016-12-12] MEDS: MeTOProlol XL 25 mg ER24 Tablet PO SCH (07:53)
[2016-12-12] MEDS ORDERED: ATRV10T PO (15:31)
[2016-12-12] MEDS ORDERED: ASPI-973 PO (15:31)
--- NOTE | 2016-12-12 16:18 | PCM.DIMED ---
Katty Quinones DO 12/12/16 1533: Discharge Instructions Date of Service Dec 12, 2016 Dates of Hospitalization Dec 11, 2016 at 04:15 Discharge Diagnosis Discharge Diagnosis 1. Chest pain, non-ST elevation myocardial infarction Other chronic problems 2. Multiple sclerosis 3. Fibromyalgia 4. Hypothyroidism 5. Gastroesophageal reflux disease 6. Hypertension 7. Depression Diet Other (Sascha's Diet) Activity Limited until seen by PCP Call your provider Fever or Chills, Shortness of breath, Bleeding, Chest pain, Excessive diarrhea, Weakness (unilateral) Patient Instructions It is recommended that you start taking an 81 mg aspirin once daily and a 10 mg atorvastatin once daily as preventative medicine for heart disease. You can take 0.4 mg of sublingual nitroglycerin every 5 minutes up to 3 doses as needed for severe chest pain. For the heartburn and gas that you have been feeling in your chest, you can continue to take Maalox available [id number] at pharmacies and grocery stores as needed for heartburn. You can also talk to Dr. Mathew about a referral to a die developer, digestive tract specialist. For the pain in your shoulder, you can make an appointment for osteopathic manipulative treatment (OMT) at [facility] at [address] [place] [address]. The phone number is [phone]. It can take 4-8 weeks to get an appointment for OMT. Follow up with Dr. Mathew in 1 week. Return to the hospital if you experience worsening chest pain, shortness of breath, severe abdominal pain, or bleeding. Follow-up Provider: Myesha Mathew MD Follow-up with PCP in: 1 week Andrea Madden MD 12/13/16 1713: Discharge Instructions Attending's Statement The patient was seen and examined together with Dr. Quinones on 12/12/2016 and I agree with the history, exam and plan as outlined in the note above. . Katty Quinones DO Dec 12, 2016 15:33 Andrea Madden MD Dec 13, 2016 17:13
[2016-12-12] MEDS ORDERED: NITR0.4T6 SL (16:25)
--- NOTE | 2016-12-12 18:03 | NUR ---
Discharge Pt reported that she was starting to feel oncoming chest pain/gassiness. Pt ambulated a lap around the unit and reported that symptoms were relieved. Pt otherwise pain free today. Pt just discharged to home with family. Pt given discharge educational materials on new prescriptions, angina, ACS, and cardiac cath booklet. Pt instructed to f/u with PCP in 1 week. Pt instructed to f/u with cardiology, appointment made with David Black PA-C on , December 26 Checking In at 9:15am, phone number supplied. Pt verbalized understanding of all discharge instructions. All belongings accompanied Pt at time of discharge.
--- NOTE | 2016-12-13 21:09 | PCM.DC.MED ---
Discharge Summary Date of Service Dec 12, 2016 Dates of Hospitalization Date of Hospital Admission Dec 11, 2016 at 04:15 Date of Discharge: Dec 12, 2016 Providers: Admitting Physician: Sorin Gracia MD Primary Care Physician: Nopelie Attending Physician: Sorin Gracia MD Diagnosis at Time of Discharge Diagnosis at Time of Discharge 1. Chest pain, non-ST elevation myocardial infarction Other chronic problems 2. Multiple sclerosis 3. Fibromyalgia 4. Hypothyroidism 5. Gastroesophageal reflux disease 6. Hypertension 7. Depression Procedures XRay, CTs & MRIs PROCEDURE: X-RAY CHEST ONE VIEW, PORTABLE IMPRESSION: No acute cardiopulmonary disease. Approved by: Pattie Swan MD, PhD on 12/11/2016 at 17:06 ECG 12 Lead Sinus bradycardia. No ischemic changes. Brief History From the history and physical performed by Dr. Philip Maldonado on 12/11/2016 : Ms. 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 At time of admission Pt stated that she developed a chest tightness starting yesterday at approximately 2030. This morning Pt states that her chest pain was a 10/10 described as an intermittent sharp pain in her left breast and now radiating into her left arm and left shoulder. She also endorsed nausea without vomiting and diaphoresis. She states these symptoms are similar to those felt during her last heart attack in 2012 where she had a catheterization done which showed no obstructive CAD and was told that she had a "mild heart attack" or was suffering from "broken heart syndrome" (stress induced cardiomyopathy). Hospital Course Ms. Carcamo is a pleasant 66 year old woman with a history of non-ST elevation myocardial infarction secondary to stress cardiomyopathy in 2012, hypertension, multiple sclerosis, and myalgia who presented to the emergency department with complaint of acute onset squeezing chest tightness and pressure. 1. Chest pain,non-ST elevation myocardial infarction, Present on Admission. Active. -Patient has stress cardiomyopathy as discussed below. -History of previous cardiac catheterization in 2012 showed no obstructive coronary disease and was suggestive of stress cardiomyopathy. -History of prior non-ST elevation myocardial infarction with symptoms similar to what she is having on this presentation. -EKG: Sinus rhythm, Rate 57. No acute ischemic changes, Repeat EKG:No acute ischemic changes. Additional repeat EKG during active chest pain: Sinus bradycardia (45) with no significant ST segment changes. -Troponin initially 0.164 in the emergency department and repeat troponin were elevated -Chest x-ray showed no acute cardiopulmonary changes -She was given a clopidogrel 300mg loading dose. -Patient was placed on oxygen and kept oxygen saturation greater than 94% -Patient received morphine 1-5 mg intravenous push every 5 minutes as needed for pain control and nitroglycerin sublingual 0.4 mg every 5 minutes as needed for pain control. -Initially held patient's home metoprolol 12.5 mg by mouth due to patient's sinus bradycardia -Cardiology consulted and followed patient. Time and recommendations were appreciated. -Patient had a left cardiac catheterization with coronary angiogram that showed non-obstructive coronary artery disease and wall motion abnormalities seen on echo are suspected to be likely stress related. -Stopped heparin intravenous drip after the cardiac catheterization. -Changed aspirin 325 mg once daily to aspirin 81 mg daily for lifetime as an outpatient. -Stopped daily clopidogrel 75mg. -Started atorvastatin 40 mg by mouth daily at bedtime but switched to atorvastatin 10 mg 1 tablet by mouth once daily for lifetime as an outpatient. -Patient given acetaminophen 650 mg by mouth once for patient's headache after nitroglycerin. Other chronic problems 2. Multiple sclerosis, presumed stable. -Continued home medication, glatiramer acetate, which has a common side effect of chest pain 3. Fibromyalgia, presumed stable. 4. Hypothyroidism, stable. -TSH normal limits - Continued medication levothyroxine 50 g tablet daily 5. Gastroesophageal reflux disease, stable. -Continued medication of omeprazole 6. Hypertension, stable. - On metoprolol succinate 12.5 mg daily, which was held due to sinus bradycardia 7. Depression, presumed stable. Other home medications estradiol was continued Exam Vital Signs (Last) Date Time Temp Pulse Resp B/P Pulse Ox O2 Delivery O2 Flow Rate FiO2 12/12/16 16:05 58 16 125/67 97 Room Air 12/12/16 11:58 36.6 12/11/16 12:27 1.00 Exam General: Patient was alert and oriented 3, no acute distress, well-developed, well-nourished. HEENT: Normocephalic. Extra-ocular muscles intact. Right nasal piercing. Neck soft nontender supple no nuchal signs, no adenopathy, no jugular venous distension, no masses. Oropharynx noninjected no erythema no exudates Lungs: Clear all ramirez bilaterally Heart: Bradycardiac. Regular rhythm no murmur S1-S2 present Abdomen: Soft nontender, bowel sounds active, no masses, no distention, no rebound no guarding Extremities: Capillary refill less than 2 seconds, pulses symmetric bilaterally and 2 out of 4 upper/lower extremity Neurologic: Cranial nerves II-12 intact grossly, patient is alert, speaking full sentences, no focal signs Skin: Warm dry and intact. Red and black sun poornima-polanco sign tattoo on right forearm. Psychiatric: Mood and affect are congruent, patient is pleasant Test 12/11/16 02:05 12/11/16 05:37 12/11/16 09:30 12/12/16 00:20 Hemoglobin A1c 6.1% (4.8-5.6) Magnesium Level 1.8mg/dL (1.6-2.6) Total Bilirubin 0.2mg/dL (0.0-1.2) Aspartate Amino Transf (AST/SGOT) 26U/L (0-50) Alanine Aminotransferase (ALT/SGPT) 22U/L (0-32) Alkaline Phosphatase 48U/L (25-165) Total Protein 7.1g/dL (6.4-8.4) Albumin 4.2g/dL (3.4-5.0) Hold Kim Top Tube Received (Received) Thyroid Stimulating Hormone (TSH) 2.540uIU/mL (0.450-4.500) Activated Partial Thromboplast Time 76.3sec (22.8-33.0) Hold Purple Top Tube Received (Received) Hold Edwards Top Tube Received (Received) Test 12/12/16 03:25 White Blood Count 7.2th/mm3 (3.8-10.1) Red Blood Count 4.52mil/mm3 (3.90-5.20) Hemoglobin 12.9g/dL (12.0-15.6) Hematocrit 39.3% (35.0-46.0) Mean Corpuscular Volume 86.9fL (81-100) Mean Corpuscular Hemoglobin 28.5pg (27.0-35.0) Mean Corpuscular Hemoglobin Concent 32.8% (32.0-37.0) Red Cell Distribution Width 13.4% (12.3-15.4) Platelet Count 257bil/L (150-400) Neutrophils (%) (Auto) 58.9% (40-74) Lymphocytes (%) (Auto) 25.5% (14-46) Monocytes (%) (Auto) 10.7% (4-12) Eosinophils (%) (Auto) 4.2% (0-5) Basophils (%) (Auto) 0.6% (0-3) Sodium Level 138mEq/L (134-144) Potassium Level 4.8mEq/L (3.5-5.2) Chloride Level 101mEq/L (97-108) Carbon Dioxide Level 27mmol/L (18-29) Blood Urea Nitrogen 9mg/dL (8-27) Creatinine 0.67mg/dL (0.57-1.00) Estimat Glomerular Filtration Rate 126mL/min (>59) Glucose Level 110mg/dL (60-99) Calcium Level 8.5mg/dL (8.5-10.1) Troponin T 0.199ug/L (0.0-0.011) Triglycerides Level 93mg/dL (0-149) Cholesterol Level 163mg/dL (100-199) LDL Cholesterol, Calculated 83.400mg/dL (0-99) VLDL Cholesterol 18.600mg/dL HDL Cholesterol 61mg/dL (>39) Cholesterol/HDL Ratio 2.67 (0.0-4.4) Discharge Medications Discharge Medications Aspirin (Aspirin) 81 Mg Tablet 81 MG PO DAILY Prescribed by: NIESHA QUINONES DO Atorvastatin (Lipitor) 10 Mg Tab 10 MG PO DAILY Prescribed by: NIESHA QUINONES DO Cholecalciferol (Vitamin D3) (Vitamin D3) 2,000 Unit Tablet 2,000 UNIT PO DAILY (Reported) Estradiol (Estrace) 1 Mg Tablet 1 MG PO DAILY (Reported) Glatiramer Acetate (Copaxone) 20 Mg Syringe 20 MG SUBQ 3XW (Reported) Levothyroxine (Levothyroxine) 50 Mcg Tablet 50 MCG PO DAILY (Reported) Metoprolol Succinate ER (Metoprolol Succinate ER) 25 Mg Tab.er.24h 12.5 MG PO DAILY (Reported) Omeprazole Magnesium (Omeprazole) 20 Mg Capsule.dr 20 MG PO DAILY (Reported) As needed Methocarbamol (Methocarbamol) 750 Mg Tablet 750 MG PO TID PRN PRN For Spasm ( Reported) Nitroglycerin SL (Nitroglycerin SL) 0.4 Mg Tab.subl 0.4 MG SL Q5MIN PRN PRN For Chest Pain Take 0.4 mg sublingual every 5 minutes up to 3 doses as needed for chest pain. Prescribed by: NIESHA QUINONES DO Followup Plan Discharge Diet: Other (Sascha's Diet) Discharge Activity: Limited until seen by PCP Patient Instructions It is recommended that you start taking an 81 mg aspirin once daily and a 10 mg atorvastatin once daily as preventative medicine for heart disease. You can take 0.4 mg of sublingual nitroglycerin every 5 minutes up to 3 doses as needed for severe chest pain. For the heartburn and gas that you have been feeling in your chest, you can continue to take Maalox available [id number] at pharmacies and grocery stores as needed for heartburn. You can also talk to Dr. Mathew about a referral to a ed special education teacher, digestive tract specialist. For the pain in your shoulder, you can make an appointment for osteopathic manipulative treatment (OMT) at [facility] at [address] [place] [address]. The phone number is [phone]. It can take 4-8 weeks to get an appointment for OMT. Follow up with Dr. Mathew in 1 week. Return to the hospital if you experience worsening chest pain, shortness of breath, severe abdominal pain, or bleeding. Follow-up Provider: Myesha Mathew MD Follow-up with PCP in: 1 week Time spent Greater than 30 minutes was spent in preparation of discharge with greater than 50% of that time dedicated to patient counseling and coordination of care. . Attending Statement The patient was seen and examined together with Dr. Quinones on 12/12/2016 and I agree with the history, exam and plan as outlined in the note above. . copies to: Myesha Mathew MD, Marissa L DO Dec 12, 2016 16:36 Andrea Madden MD Dec 14, 2016 07:38
== END 2016-12-12 18:03 | disposition home or self-care (01) | DRG 281 ==
LOC: SED 01:58 → PCC 04:15
PROVIDERS: ADMIT Hospitalist; ATTEND Hospitalist
PROC: 4A023N7 Measurement of Cardiac Sampling and Pressure, Left Heart, Percutaneous Approach (ICD-10-PCS; principal; 2016-12-11)
PROC: B211YZZ Fluoroscopy of Multiple Coronary Arteries using Other Contrast (ICD-10-PCS; 2016-12-11)
DX: I21.4 Non-ST elevation (NSTEMI) myocardial infarction (principal); I51.81 Takotsubo syndrome; G35 Multiple sclerosis; I10 Essential (primary) hypertension; E03.9 Hypothyroidism, unspecified; Z79.82 Long term (current) use of aspirin